=== PATIENT | male | born 1950 | race Caucasian/White ===

== ENCOUNTER 2019-12-22 17:54 | Emergency (ER) | payer BC, MEDICARE, OTHER ==
[~2019-12-22] VITALS: Ht 172.7 cm; Wt 93.0 kg
[~2019-12-22 17:54] MED LIST: ATOR40TA PO; CARI350T PO; CLOP75TA35 PO; FENO48TA15 PO; HYDR-3968 PO; LISI-222 PO; PANT40TA39 PO
[2019-12-22 17:56] VITALS: BP 195/75
--- NOTE | 2019-12-22 18:07 | NUR ---
Pt arrived to room and immediatly evaluated by provider, removed from trauma status at that time.
[2019-12-22] MEDS ORDERED: HYDR-3965 PO (18:52)
[2019-12-22] MEDS ORDERED: HYDROcodone/acetaminophen 10/325mg tab PO ONE (18:55)
== END 2019-12-22 20:11 | disposition home or self-care (01) ==
LOC: VAS 17:54 → ER 20:11
DX: S52.502A Unspecified fracture of the lower end of left radius, initial encounter for closed fracture (principal); S52.102A Unspecified fracture of upper end of left radius, initial encounter for closed fracture; S00.31XA Abrasion of nose, initial encounter; M25.552 Pain in left hip; Z91.030 Bee allergy status; Z79.899 Other long term (current) drug therapy; W08.XXXA Fall from other furniture, initial encounter; Y93.89 Activity, other specified; Y92.89 Other specified places as the place of occurrence of the external cause; Y99.8 Other external cause status
CPT/HCPCS: 29105; 70450; 70486; 73080; 73090; 99285